=== PATIENT | female | born 1945 | race Caucasian/White ===

== ENCOUNTER 2019-11-11 12:50 | Emergency (ER) | payer BC, MEDICARE ==
[~2019-11-11] VITALS: Ht 162.6 cm; Wt 77.0 kg
[2019-11-11] MEDS ORDERED: IBUPROFEN 600MG TABLET PO ONE (13:15)
[2019-11-11 14:50] VITALS: BP 139/71
== END 2019-11-11 14:52 | disposition home or self-care (01) ==
LOC: ER 12:50
DX: S50.01XA Contusion of right elbow, initial encounter (principal); Z86.718 Personal history of other venous thrombosis and embolism; W20.8XXA Other cause of strike by thrown, projected or falling object, initial encounter; Y93.89 Activity, other specified; Y92.89 Other specified places as the place of occurrence of the external cause; Y99.8 Other external cause status
CPT/HCPCS: 73080; 99283